=== PATIENT | female | born 1950 | race Hispanic/Latino ===

== ENCOUNTER 2016-11-15 17:21 | Inpatient (IN) ==
[2016-11-15] MEDS ORDERED: IBUPROFEN 400 MG TABLET PO PRN (17:44)
[2016-11-15] MEDS ORDERED: ACETAMINOPHEN 325 MG TABLET PO PRN (17:44)
[2016-11-15] MEDS ORDERED: VANCOMYCIN PER PHARMACY IV SCH (18:00)
--- NOTE | 2016-11-15 18:01 | Orthopedic History & Physical ---
History of Present Illness Patient information: Note initiated : 11/15/16 at 5:57 pm Service Date, if different from initiated Date: [] Patient: Renetta Moreno 66 y/o F admitted on 11/15/16 for left thigh abscess. Chief Complaint: [] Chief complaint: left thigh abscess HPI: Ms. Moreno is a 66 year old female admitted for a left thigh abscess. The patient had a debridement and incision and drainage on 10-30-16 for an infected hematoma of the left thigh. She was seen in clinic today where it was noted that she continued to have purulent drainage. She does report stiffness in the leg and difficulty with range of motion of her knee. She denies any fevers, nausea, vomiting, chest pain, abdominal pain, weakness, numbness/tingling, or any other acute symptoms. Review of Systems Constitutional: as per HPI Nose, mouth and throat: nasal congestion Cardiovascular: as per HPI, no chest pain Respiratory: as per HPI, no cough, no dyspnea Musculoskeletal: as per HPI Musculoskeletal: left: knee stiffness Integumentary: as per HPI Neurological: as per HPI Psychiatric: as per HPI Hematologic/Lymphatic: as per HPI Past History Past medical history: HTN, hypothyroidism Past surgical history: surgery on 10-30-16 for left thigh abscess Physical Examination - Knee left Appearance: other (significant swelling through the left thigh, incision that is dehiscing over the medial side of the thigh extending towards the knee with some sutures in place, packed wound over the posteromedial aspect of the knee, no surrounding erythema, area around incision indurated and hard, purulent fluid draining from all incisions, knee ROM limited secondary to stiffness and swelling, HEENT exam is atraumatic and normocephalic with some congestion but no drainage and mucuos membranes are moist, Neck exam is supple with no lymphadenopathy, chest shows no tenderness and exercsion is symmetric, Cardiovascular shows Regular Rate and rythm with no murmurs rubs or gallops, 2+ pulses in bilateral feet, abdominal exam shows obese patient with no tenderness or masses or organomegaly, dermatolgic exam shows no abnormalities except as indicated in musculoskeletal exam ) Varus alignment in stance: [id number] 6 Valgus alignment in stance: [id number] 6 Tenderness with palpation: none Pain: no pain Gait: normal Full ROM: yes ROM: hyperextension: [id number] 4 ROM: extension: [id number] 3 ROM: flexion: [id number] 26 Strength: extension: 5/5 Strength: flexion: 5/5 Patella exam: normal - Cervical Spine Neck pain: none Tenderness with palpation: none Full ROM: yes ROM: flexion: [id number] 11 ROM: extension: [id number] 11 ROM: rotation right: [id number] 11 ROM: rotation left: [id number] 11 ROM: lateral flexion right: [id number]_60 8 ROM: lateral flexion left: [id number]_[id number]_60 8 - Lumbar Spine Back pain: none Tenderness with palpation: none Appearance: normal Full ROM: yes ROM: flexion: [id number] 12 ROM: extension: PM_46_OR45_45_0 1 ROM: rotation right: [id number]_46_OR45_45_0 1 ROM: rotation left: [id number]_46_OR45_45_0 1 ROM: lateral flexion right: [id number]_46_OR45_45_0 1 ROM: lateral flexion left: [id number]_OR45_[id number]_0 1 Results - Labs Result Diagrams: 11/15/16 18:06 11/15/16 18:06 Labs: All other labs normal. Assessment and Plan (1) Traumatic hematoma of left lower leg with infection Patient will be admitted for IV antibiotics through her PICC line, She will be started on Vancomycin TID to be followed by pharmacy. We will plan to do an incision and drainage of left thigh abscess tomorrow with Dr. Santos with possibility of wound vac placement. Likely discharged to home in following 2-3 days with continued IV antibiotics for a duration of likely 4-6 weeks. Medicine to consult as needed. I explained surgery and outcomes and risks to patient and she agrees to surgery. Status: Acute
[2016-11-15 18:31] LABS: Basophils # (Auto) 0 K/mcL (0.0-0.3); Basophils % (Auto) 0.5 % (0.0-2.0); Eosinophils # (Auto) 0 K/mcL (0.0-0.7); Eosinophils % (Auto) 0.5 % (0.0-7.0); Granulocytes % (Auto) 77.6 % (38.0-78.0); Lymphocytes # (Auto) 1.3 K/mcL (1.5-4.8); Lymphocytes % (Auto) 16.1 % (15.5-49.0); Mean Cell Volume 74.6 fL (80.0-100.0); Mean Corpuscular HGB Conc 31.6 g/dL (31.0-36.0); Mean Corpuscular Hemoglobin 23.6 pg (26.0-34.0); Monocytes # (Auto) 0.4 K/mcL (0.1-0.9); Monocytes % (Auto) 5.3 % (1.0-12.0); Platelet Count 481 K/mcL (140-440); RBC 3.86 M/mcL (4.00-5.20); Red Cell Distribution Width 14.8 % (11.5-14.5)
[2016-11-15 18:52] LABS: ALT/SGPT 22 U/l (0-40); Albumin 3.6 gm/dL (3.2-5.2); Alkaline Phosphatase 101 U/L (39-117); Blood Urea Nitrogen 11 mg/dl (8-23)
[2016-11-15] MEDS ORDERED: VANCOMYCIN 500 MG VIAL ONE (19:42)
[2016-11-15] MEDS: LACTATED RINGERS 1,000 ML IV SCH (20:11)
[2016-11-15] MEDS: 0.9 % SODIUM CHLORIDE 10 ML SYRINGE IV SCH (20:11)
[2016-11-15] MEDS: VANCOMYCIN 1,500 MG in 0.9 % SODIUM CHLORIDE 500 ML IV SCH (21:44)
[2016-11-15] MEDS ORDERED: VANCOMYCIN 1,500 MG in 0.9 % SODIUM CHLORIDE 500 ML IV SCH (22:00)
[2016-11-15 23:26] LABS: Appearance,Urine CLEAR; Bilirubin,Urine NEG (NEG); Color,Urine STRAW; Glucose,Urine (UA) NEGATIVE (NEG); Leukocyte Esterase,Urine NEG /uL (NEG); Nitrate,Urine NEG (NEG); Protein,Urine NEG (NEG); Specific Gravity,Urine 1.008 (1.000-1.035); Urine Blood NEG mg/dL (<0.03); Urobilinogen,Urine NEG (NEG)
[2016-11-16] MEDS: LACTATED RINGERS 1,000 ML IV SCH ×3 (06:24→22:41)
[2016-11-16] MEDS: 0.9 % SODIUM CHLORIDE 10 ML SYRINGE IV SCH ×3 (06:25→21:33)
[2016-11-16] MEDS ORDERED: VANCOMYCIN PER PHARMACY IV SCH (11:45)
[2016-11-16] MEDS: VANCOMYCIN 1,500 MG in 0.9 % SODIUM CHLORIDE 500 ML IV SCH (11:52)
[2016-11-16] MEDS ORDERED: PROPOFOL 200 MG/20 ML VIAL IV ONE (12:10)
[2016-11-16] MEDS ORDERED: fentaNYL 250 MCG/5 ML VIAL IV ONE (12:10)
[2016-11-16] MEDS ORDERED: ONDANSETRON 4 MG/2 ML VIAL IV ONE (12:10)
[2016-11-16] MEDS ORDERED: DEXAMETHASONE 10 MG/ML VIAL IV ONE (12:10)
[2016-11-16] MEDS ORDERED: LIDOCAINE HCL/PF 100 MG/5 ML SYRINGE IV ONE (12:10)
[2016-11-16] MEDS ORDERED: MIDAZOLAM 5 MG/5 ML VIAL IV ONE (12:10)
[2016-11-16] MEDS ORDERED: fentaNYL 100 MCG/2 ML VIAL IV PRN (12:40)
[2016-11-16] MEDS ORDERED: BENZOCAINE/MENTHOL 1 LOZENGE PO PRN (12:40)
[2016-11-16] MEDS ORDERED: ONDANSETRON 4 MG/2 ML VIAL IV PRN ×2 (12:40→13:02)
[2016-11-16] MEDS ORDERED: IPRATROPIUM/ALBUTEROL 3 ML AMPUL.NEB NEB PRN (12:40)
[2016-11-16] MEDS ORDERED: MEPERIDINE 25 MG/ML SYRINGE IV PRN (12:40)
[2016-11-16] MEDS ORDERED: diphenhydrAMINE 50 MG/ML VIAL IV PRN (12:40)
[2016-11-16] MEDS ORDERED: FLUMAZENIL 0.1 MG/ML ML IV PRN (12:40)
[2016-11-16] MEDS ORDERED: LACTATED RINGERS 250 ML IV PRN (12:40)
[2016-11-16] MEDS ORDERED: NALOXONE HCL 0.4 MG/ML VIAL IV PRN (12:40)
[2016-11-16] MEDS ORDERED: LACTATED RINGERS 1,000 ML IV SCH (12:45)
[2016-11-16] MEDS ORDERED: POLYETHYLENE GLYCOL 3350 17 GM PACKET PO PRN (13:02)
[2016-11-16] MEDS ORDERED: FLEETS ADULT ENEMA PR PRN (13:02)
[2016-11-16] MEDS ORDERED: METHOCARBAMOL 750 MG TABLET PO PRN (13:02)
[2016-11-16] MEDS ORDERED: BISACODYL 10 MG SUPP.RECT PR PRN (13:02)
[2016-11-16] MEDS ORDERED: MAGNESIUM HYDROXIDE 30 ML ORAL.SUSP PO PRN (13:02)
--- NOTE | 2016-11-16 13:02 | Brief Operative Note ---
Date of procedure: 11/16/16 Pre-op diagnosis: left thigh infection Post-op diagnosis: same Procedure: left thigh I&D, bead placement, vac placement, aspiration of knee joint Grafts/Implants: Yes Anesthesia: GETA Complications: none Surgeon: Pavan Santos Ballroom Dance Instructor: Woody Allen Estimated blood loss (cc): 100 Specimens Removed/Pathology: other (cultures deep and knee aspiration left) Condition: stable Disposition: PACU
[2016-11-16] MEDS ORDERED: VANCOMYCIN 1,000 MG in 0.9 % SODIUM CHLORIDE 250 ML IV SCH (13:15)
--- NOTE | 2016-11-16 13:38 | Operative Note ---
DATE OF OPERATION: 11/16/2016 PREOPERATIVE DIAGNOSIS: Left thigh abscess. POSTOPERATIVE DIAGNOSIS: Left thigh abscess. PROCEDURES PERFORMED: 1. Irrigation and debridement of left thigh abscess including skin. subcutaneous tissue, and fascia. 2. Left knee aspiration of the joint. 3. Left thigh antibiotic bead placement and wound V.A.C. placement. SURGEON: Radha Santos MD CORPORATE TRAINING MANAGER: Woody Allen PA-C ANESTHESIA: General. FINDINGS: 1. Moderate infection, which is presumably E. coli in the subcutaneous tissue, tracking proximally and distally. 2. No evidence of infection in the knee joint. 3. No penetration into the deep fascia. INDICATIONS: The patient is a 66-year-old female. She had a previous thigh hematoma, which was aspirated. It went on to get infected. An irrigation and debridement was performed by Dr. David and she was found to have E. coli. It has progressively worsened and started draining. I was asked to see the patient in consultation yesterday and we felt that repeat irrigation and debridement and the above was the best option. She wished to proceed. The risks and benefits were discussed with the patient in detail including, but not limited to, the risks of anesthesia, problems with the heart or lungs related to anesthesia, infection, compromise or injury to the nerves and blood vessels, deep venous thrombosis, pulmonary embolism, pneumonia, continued pain after surgery, worsening pain or symptoms after surgery, swelling, loss of motion, re-tear or failure of repair site, and need for repeat surgery. OPERATION IN DETAIL: The patient was seen preoperatively where site and side were properly identified and marked, and all questions were answered. She was then transferred to the operating room and given 1 gram vancomycin and general anesthesia was administered without complication. She was prepped and draped in the usual sterile fashion from the toes up to the groin. The incision was re-excised. It was about 20 cm along the medical thigh distally. We dissected down through the skin and subcutaneous tissue and removed some of the excess skin along the periphery. Some of the subcutaneous tissue was also debrided. There was a moderate amount of purulent material. We used ring curets and curets to scrape off the fascia and removed some of the fascia as well. It did not track deep. There was some walled off regions in the subcutaneous layer, both proximally and distally and these were excised. We then thoroughly irrigated, split the 12 liters of antibiotic impregnated saline. Prior to doing this, we took cultures from the medial thigh. We then thoroughly irrigated again and we closed the incision with 2-0 Prolene. We placed a wound V.A.C. tunnel in deep and placed antibiotic beads. The wound V.A.C. finished along the distal extent of the wound and we left about 4 cm open with the wound V.A.C. for drainage. I then under sterile technique along the anterolateral side aspirated the knee joint and it had synovial fluid. This did not appear to be infected but this was sent to the lab as well for culture and cell count. She was then extubated, transferred to a stretcher, and taken to the Post-Anesthetic Care Unit in stable condition. SPECIMENS: None. COMPLICATIONS: None. DRAINS: None. DISPOSITION: To PACU in stable condition. USMAN:jenn Job ID: [id number] Doc ID: [id number] Radha Santos MD
[2016-11-16] MEDS ORDERED: TOBRAMYCIN PER PHARMACY IV ONE (13:55)
[2016-11-16] MEDS ORDERED: GENTAMICIN SULFATE 800 MG/20 ML VIAL IR ONE (14:06)
[2016-11-16] MEDS ORDERED: TOBRAMYCIN SULFATE 1.2 GM VIAL TOPICAL ONE (14:46)
[2016-11-16] MEDS: VANCOMYCIN 1 GM VIAL TOPICAL SCH (14:50)
--- NOTE | 2016-11-16 19:52 | General Surgery Consult Note ---
History of Present Illness Patient information: Note initiated : 11/16/16 at 7:49 pm Service Date, if different from initiated Date: [] Patient: Renetta Moreno 66 y/o F admitted on 11/15/16 for Left Thigh Abscess. Chief Complaint: [] Consult date: 11/16/16 Requesting physician: Pavan Santos History of present illness: Recurring LEFT thigh abscess. S/p OPEN debridement today. Consulted for wound management. I have reviewed the notes of Dr. Dawn ( Orthopedics ) and seen patient with Dianne HILLIARD, IP wound nurse. Patient is comfortable . Will take down dressings and see the wounds tomorrow morning and make further recommendations about ongoing treatment. Medications and Allergies Home Medications Medication Instructions Recorded Confirmed Type Levothyroxine [Synthroid] 25 mcg PO DAILY 11/17/16 11/17/16 History Lisinopril [Zestril] 30 mg PO DAILY 11/17/16 11/17/16 History Allergies Allergy/AdvReac Type Severity Reaction Status Date / Time No Known Drug Allergies Allergy Verified 11/15/16 19:16 Exam Temp Pulse Resp BP Pulse Ox 98.2 F 85 18 128/75 96 11/16/16 14:38 11/16/16 17:16 11/16/16 15:04 11/16/16 17:16 11/16/16 17:16 - General physical appearance well developed, well nourished, no distress, other (Comfortable and resting . Watching TV. Denies any pain or discomfort at the surgery site. Wound VAC is functioning .) - Eyes PERRL, normal ocular movement - ENT normal pinna, normal nares, normal mucosa, no hearing loss, no congestion - Head Head exam IM: Present: atraumatic, normal inspection, normocephalic - Neck no masses, trachea midline, no venous distension - Cardiovascular Cardiovascular exam IM: Present: normal rate and rhythm, bradycardia - Respiratory normal expansion, clear to auscultation - Abdomen Abdomen: Present: soft, non tender, bowel sounds - Integumentary Present: no rash, other (Wound VAC in place , Dressings CDI) - Neurologic Present: normal coordination, normal sensation, other (Non focal normal neurological examination) - Musculoskeletal Present: other (S/P Reexploration of traumatic soft tissue hematoma Left thigh. Dressings CDI. Wound VAC in place. ) - Psychiatric Present: oriented to time, oriented to person, oriented to place, speech is normal (Keen to get this over with and go home. ), memory intact Results - Labs 11/17/16 06:06 11/15/16 18:06 All other labs normal. Assessment and Plan (1) Wound disruption, post-op, skin Status: Acute Priority: Medium Comment: Patient has had a repeat surgery with debridement of post operative hmatoma and placement of beads and wound VAC on an approxiamted wound, NO clinical signs of wound VAC malfunction or other discomfort / distress. PLAN: I saw isma late in evening. Will reasses again with Zoraida RN , Wo Care Nurse in AM and further recommendations.
[2016-11-16] MEDS: DOCUSATE SODIUM 100 MG CAPSULE PO SCH (21:33)
[2016-11-16] MEDS: SENNOSIDES 1 TABLET PO SCH (21:33)
[2016-11-16 22:01] LABS: Appearance,Synovial Fluid TURBID; Color,Synovial Fluid RED
[2016-11-17] MEDS: 0.9 % SODIUM CHLORIDE 10 ML SYRINGE IV SCH ×3 (05:19→20:30)
--- NOTE | 2016-11-17 07:35 | Orthopedic Progress Note ---
Subjective Patient information: Note initiated : 11/17/16 at 7:33 am Service Date, if different from initiated Date: [] Patient: Renetta Moreno 66 y/o F admitted on 11/15/16 for Left Thigh Abscess. Chief Complaint: [] Interval history: doing much better today Objective Vital signs: Vital Signs Temp Pulse Pulse Pulse Resp BP BP 11/17/16 07:28 98.2 F 73 16 117/66 11/17/16 04:00 97.9 F 74 14 118/71 11/17/16 00:00 98.0 F 82 14 135/70 11/16/16 20:00 98.1 F 97 H 14 132/72 11/16/16 17:16 85 128/75 11/16/16 17:01 86 147/62 11/16/16 16:47 79 127/59 11/16/16 16:31 82 146/70 11/16/16 16:00 78 11/16/16 15:46 82 163/69 11/16/16 15:41 80 130/71 11/16/16 15:31 80 150/73 11/16/16 15:16 80 155/71 11/16/16 15:04 85 18 149/92 11/16/16 14:38 98.2 F 79 20 149/92 11/16/16 14:10 86 18 152/63 11/16/16 13:58 98.7 F 65 12 140/63 Pulse Ox 11/17/16 07:28 97 11/17/16 04:00 95 11/17/16 00:00 92 11/16/16 20:00 95 11/16/16 17:16 96 11/16/16 17:01 93 11/16/16 16:47 96 11/16/16 16:31 94 11/16/16 16:00 11/16/16 15:46 94 11/16/16 15:41 91 11/16/16 15:31 91 11/16/16 15:16 93 11/16/16 15:04 94 11/16/16 14:38 94 11/16/16 14:10 95 11/16/16 13:58 96 Intake and Output 11/16/16 11/17/16 11/17/16 21:59 05:59 13:59 Intake Total 780 / 780 1618 / 1618 Output Total 403 / 403 700 / 700 Balance 377 / 377 918 / 918 Intake: IV 868 / 868 Lactated Ringers 1,000 ml 868 / 868 @ 100 mls/hr IV .Q10H CARMELINA Rx#:[id number] Oral 780 / 780 750 / 750 Output: Void Amount 400 / 400 700 / 700 # of times incontinent of 3 / 3 urine Other: Meal Dinner Percent of Meal Consumed 100% Feeding Ability Independent # Voids 1 # Bowel Movements 1 Weight 190 lb Intake & Output: Intake & Output 11/16/16 11/17/16 11/17/16 21:59 05:59 13:59 Intake Total 780 / 780 1618 / 1618 Output Total 403 / 403 700 / 700 Balance 377 / 377 918 / 918 Weight 190 lb Intake: IV 868 / 868 Lactated Ringers 1,000 ml 868 / 868 @ 100 mls/hr IV .Q10H CARMELINA Rx#:[id number] Oral 780 / 780 750 / 750 Output: Void Amount 400 / 400 700 / 700 # of times incontinent of 3 / 3 urine Other: Meal Dinner Percent of Meal Consumed 100% Feeding Ability Independent # Voids 1 # Bowel Movements 1 Incision: Yes healing, Yes clean and dry Incision clean and dry: Yes Dressing: Yes clean, Yes dry, Yes intact Weight bearing status: full Neurological exam IM: Yes alert, Yes oriented X3, Yes motor sensory intact, Yes neurovascular intact Extremities exam IM: No calf tenderness, Yes Foot pink and warm, Yes neurovascular intact - Labs CBC & BMP: 11/17/16 06:06 11/15/16 18:06 Labs: 11/17/16 11/15/16 06:06 18:06 Hgb 7.4 L 9.1 L Hct 23.6 L 28.8 L Assessment and Plan (1) Traumatic hematoma of left lower leg with infection pod 1 s/p i and d leg abscess wound vac wound care consult wbat pain control iv vanco - await new cultures Status: Acute
[2016-11-17] MEDS ORDERED: IBUPROFEN 200 MG TABLET PO PRN (07:50)
[2016-11-17] MEDS: DOCUSATE SODIUM 100 MG CAPSULE PO SCH ×2 (07:53→22:02)
[2016-11-17] MEDS: HYDROcodone/APAP 10/325MG TABLET PO PRN (08:32)
[2016-11-17] MEDS ORDERED: PNEUMOCOCCAL 23-VAL P-SAC VAC 0.5 ML VIAL IM ONE (09:00)
[2016-11-17] MEDS: VANCOMYCIN 1,500 MG in 0.9 % SODIUM CHLORIDE 500 ML IV SCH (11:01)
[2016-11-17] MEDS: LACTATED RINGERS 1,000 ML IV SCH ×2 (11:09→22:02)
[2016-11-17] MEDS ORDERED: LORazepam 1 MG TABLET PO ONE (12:03)
[2016-11-17] MEDS: VANCOMYCIN 1 GM VIAL TOPICAL SCH (16:16)
[2016-11-17] MEDS: BENZOCAINE/MENTHOL 1 LOZENGE PO PRN (20:39)
--- NOTE | 2016-11-17 21:19 | General Surgery Progress Note ---
Subjective Patient reports: pain is less, tolerating a regular diet, no bowel movement, afebrile, other Narrative: Note initiated : 11/17/16 at 9:08 pm Service Date, if different from initiated Date: [] Patient: Renetta Moreno 66 y/o F admitted on 11/15/16 for Left Thigh Abscess. Chief Complaint: []I saw this patient in the morning and subsequently spoke with Dr. Santos. Concerned about area of necrosis along the flap edge with soft tissue edema. The wound is tunneling superiorly. Proper assessment could not be completed due to pain and discomfort. At this point in time, we recommend topical placement of wound VAC and hyperbaric oxygen treatment for compromise flap. I discussed this plan with Dr. Santos. He agrees with the the recommendation. Subsequently, patient underwent HBOT uneventfully. Currently resting in bed. Denies any specific complaints. LLE toes PWD. FROM of hip, knee and ankle / foot. Objective Temp Pulse Resp BP Pulse Ox 98.3 F 85 20 137/68 97 11/17/16 20:00 11/17/16 20:00 11/17/16 20:00 11/17/16 20:00 11/17/16 20:00 AVSS. MARIE no acute interval changes. HD stable. Lungs are CTA and heart sounds are normal. Dressings and wound VAC foam was removed to check the status of this wound. THIS REVEALED FOCUSED SKIN NECROSIS OF SUPERFICIAL FLAP EDGE. Though this area is small and open, in the distal part of the wound, It is situated over and proximal to knee joint, above the medial femoral condyle. This is worrisome. There is dark brown necrotic patch of skin and subcutaneous dermis, this may require close monitoring, I will recommend a HBO treatment for compromised skin flap Though new wound VAC is applied and is functioning at this time ( < 24 hours post op ). This is critical and needs to be started JOSE M. I spoke with Dr. ECHEVARRIA and reviewed photographs with him. He agrees to with plan of care. - Additional Data Intake & Output - Last 24 hours: Intake & Output 11/15/16 11/16/16 11/17/16 11/18/16 05:59 05:59 05:59 05:59 Intake Total 540 / 540 4598 / 4598 2099 / 2099 Output Total 2099 / 2099 2253 / 2253 Balance -1560 / -1560 2345 / 2345 2100 / 2100 Weight 188 lb 8 oz 190 lb - Labs 11/18/16 05:50 11/15/16 18:06 Assessment and Plan (1) Wound disruption, post-op, skin Problem details: Patient has had a repeat surgery with debridement of post operative hmatoma and placement of beads and wound VAC on an approxiamted wound. NO clinical signs of wound VAC malfunction or other discomfort / distress. PLAN: I saw angelan late in evening. Will reasses again with Zoraida HILLIARD , [facility] Care Nurse in AM and further recommendations. Status: Acute Assessment and plan: I spoke at length with floor nursing staff and Dr. Stapleton, Hospitalist Physician, Will recommend starting HBOT 2.5 ROXANN with air breaks per protocol and monitor progress. Will continue with IV antibiotics. HOLD transfer or discharge at this point. Will follow her closely, whilst she is still hospitalized Spoke with patient, benefits and patient and her at length about indication and risks, benefits . Current Visit: Yes - Time Spent With Patient Total time spent is greater than 50% in coordination of care (as documented) at patient's floor/unit and/or counseling patient: Greater than 35 minutes
[2016-11-17] MEDS: SENNOSIDES 1 TABLET PO SCH (22:02)
[2016-11-18] MEDS: LACTATED RINGERS 1,000 ML IV SCH ×2 (04:50→16:45)
[2016-11-18] MEDS: 0.9 % SODIUM CHLORIDE 10 ML SYRINGE IV SCH ×3 (05:36→20:46)
--- NOTE | 2016-11-18 06:31 | Orthopedic Progress Note ---
Subjective Patient information: Note initiated : 11/18/16 at 6:30 am Service Date, if different from initiated Date: [] Patient: Renetta Moreno 66 y/o F admitted on 11/15/16 for Left Thigh Abscess. Chief Complaint: [] Interval history: doing ok. pain under control. hbo today. wound vac Objective Vital signs: Vital Signs Temp Pulse Pulse Resp BP BP Pulse Ox 11/18/16 04:00 98.5 F 77 20 150/74 97 11/18/16 00:00 98.5 F 80 20 145/75 96 11/17/16 20:00 98.3 F 85 20 137/68 97 11/17/16 16:00 97.5 F L 18 157/73 94 11/17/16 11:14 98.7 F 18 111/66 96 11/17/16 07:28 98.2 F 73 16 117/66 97 Intake and Output 11/17/16 11/18/16 11/18/16 21:59 05:59 13:59 Intake Total 1100 / 1100 150 / 150 Balance 1100 / 1100 150 / 150 Intake: Oral 1100 / 1100 150 / 150 Other: Meal Dinner Percent of Meal Consumed 100% Feeding Ability Independent # Voids 1 1 # Bowel Movements 1 Weight 192 lb Intake & Output: Intake & Output 11/17/16 11/18/16 11/18/16 21:59 05:59 13:59 Intake Total 1100 / 1100 150 / 150 Balance 1100 / 1100 150 / 150 Weight 192 lb Intake: Oral 1100 / 1100 150 / 150 Other: Meal Dinner Percent of Meal Consumed 100% Feeding Ability Independent # Voids 1 1 # Bowel Movements 1 Incision: Yes clean and dry Incision clean and dry: Yes Dressing: Yes clean, Yes dry, Yes intact Weight bearing status: full Neurological exam IM: Yes alert, Yes normal gait, Yes oriented X3, Yes motor sensory intact Extremities exam IM: No calf tenderness, Yes Foot pink and warm, Yes neurovascular intact - Labs CBC & BMP: 11/17/16 06:06 11/15/16 18:06 Labs: 11/18/16 11/17/16 11/15/16 05:50 06:06 18:06 Hgb Pending 7.4 L 9.1 L Hct Pending 23.6 L 28.8 L Assessment and Plan (1) Traumatic hematoma of left lower leg with infection pod 2 s/p i and d leg abscess wound vac wound care consult - starting hbo wbat pain control iv vanco - await new cultures Status: Acute
[2016-11-18] MEDS ORDERED: LORazepam 1 MG TABLET PO PRN (09:38)
[2016-11-18] MEDS: BENZOCAINE/MENTHOL 1 LOZENGE PO PRN ×2 (09:38→20:45)
[2016-11-18] MEDS: DOCUSATE SODIUM 100 MG CAPSULE PO SCH ×2 (09:39→20:41)
[2016-11-18] MEDS: VANCOMYCIN 1,500 MG in 0.9 % SODIUM CHLORIDE 500 ML IV SCH (13:07)
--- NOTE | 2016-11-18 16:13 | General Surgery Progress Note ---
Subjective Narrative: Note initiated : 11/18/16 at 4:09 pm Service Date, if different from initiated Date: [] Patient: Renetta Moreno 66 y/o F admitted on 11/15/16 for Left Thigh Abscess. Chief Complaint: []I saw this patient in the morning on rounds and again during the course of her treatment in the wound clinic for HBO therapy. No overnight events. Wound VAC is functioning well. Surrounding skin and periwound area is nontender. Objective Temp Pulse Resp BP Pulse Ox 96.7 F L 77 18 150/69 96 11/18/16 15:56 11/18/16 04:00 11/18/16 15:56 11/18/16 15:56 11/18/16 15:56 - Additional Data Intake & Output - Last 24 hours: Intake & Output 11/16/16 11/17/16 11/18/16 11/19/16 05:59 05:59 05:59 05:59 Intake Total 540 / 540 4598 / 4598 2750 / 2750 600 / 600 Output Total 2100 / 2100 2253 / 2253 975 / 975 Balance -1560 / -1560 2345 / 2345 2750 / 2750 -375 / -375 Weight 188 lb 8 oz 190 lb 192 lb - Labs 11/18/16 05:50 11/15/16 18:06 Assessment and Plan (1) Wound disruption, post-op, skin Problem details: Patient has had a repeat surgery with debridement of post operative hmatoma and placement of beads and wound VAC on an approxiamted wound. NO clinical signs of wound VAC malfunction or other discomfort / distress. PLAN: I saw patietn late in evening. Will reasses again with Zoraida HILLIARD , Wo Care Nurse in AM and further recommendations. Status: Acute Assessment and plan: I spoke at length with floor nursing staff and Dr. Stapleton, Hospitalist Physician, Will recommend starting HBOT 2.5 ROXANN with air breaks per protocol and monitor progress. Will continue with IV antibiotics. HOLD transfer or discharge at this point. Will follow her closely, whilst she is still hospitalized Spoke with patient, benefits and patient and her at length about indication and risks, benefits . Current Visit: Yes - Narrative A/P Narrative: Assessment: Patient is hemodynamically and neurovascularly stable. Wound VAC left extremity is functioning well. Minimal drainage. Lab blood works are unremarkable for any acute abnormalities. so far, all cultures have been negative. Plan: Continue current treatment. Reassess the wound and change wound VAC tomorrow. Recommendation about further treatment to follow later. - Time Spent With Patient Total time spent is greater than 50% in coordination of care (as documented) at patient's floor/unit and/or counseling patient: less than 15 minutes
[2016-11-18] MEDS ORDERED: PNEUMOCOCCAL 23-VAL P-SAC VAC 0.5 ML VIAL IM ONE (17:15)
[2016-11-18] MEDS: SENNOSIDES 1 TABLET PO SCH (20:41)
[2016-11-19] MEDS: 0.9 % SODIUM CHLORIDE 10 ML SYRINGE IV SCH ×2 (04:59→14:51)
--- NOTE | 2016-11-19 07:33 | Orthopedic Progress Note ---
Orthopedics - Auxillary Note - Subjective Patient Information: Note initiated : 11/19/16 at 7:32 am Service Date, if different from initiated Date: [] Patient: Renetta Moreno 66 y/o F admitted on 11/15/16 for Left Thigh Abscess. Chief Complaint: no c/o nvi-distal bandages c/d/i Vital Signs Temp Pulse Resp BP Pulse Ox 11/19/16 03:30 99.1 F 75 24 161/82 94 11/19/16 00:10 97.9 F 80 16 169/76 92 11/18/16 20:35 98.2 F 89 16 163/72 94 11/18/16 15:56 96.7 F L 18 150/69 96 11/18/16 12:00 96.8 F L 18 165/81 97 Intake and Output 11/18/16 11/19/16 11/19/16 21:59 05:59 13:59 Intake Total 1100 / 1100 500 / 500 Output Total 1000 / 1000 0 / 0 Balance 100 / 100 500 / 500 Intake: Oral 1100 / 1100 500 / 500 Output: Drainage 0 / 0 Left Thigh Woundvac 0 / 0 Void Amount 1000 / 1000 Other: Meal Dinner Percent of Meal Consumed 75% # Voids 1 1 2 # Bowel Movements 1 2 Weight 186 lb Laboratory Results - last 24 hr 11/19/16 05:05 Hgb 7.7 L Hct 24.9 L s/p L leg I&D-stable continue with IV abx continue with wound care
[2016-11-19] MEDS: DOCUSATE SODIUM 100 MG CAPSULE PO SCH (08:08)
[2016-11-19] MEDS: HYDROcodone/APAP 10/325MG TABLET PO PRN (08:16)
--- NOTE | 2016-11-19 10:31 | General Surgery Progress Note ---
Subjective Patient reports: no new complaints Narrative: Note initiated : 11/19/16 at 10:29 am Service Date, if different from initiated Date: [] Patient: Renetta Moreno 66 y/o F admitted on 11/15/16 for Left Thigh Abscess. Chief Complaint: [] Objective Temp Pulse Resp BP Pulse Ox 98.1 F 74 16 173/77 96 11/19/16 08:00 11/19/16 08:00 11/19/16 08:00 11/19/16 08:00 11/19/16 08:00 AVSS. No changes MARIE. Dressing changed and wound VAC reapplied. Continues to have serous drainage. NO odor. C/S negative thus far. Wound dimensions as per nurses note. - Additional Data Intake & Output - Last 24 hours: Intake & Output 11/17/16 11/18/16 11/19/16 11/20/16 05:59 05:59 05:59 05:59 Intake Total 4598 / 4598 2750 / 2750 1840 / 1840 Output Total 2253 / 2253 1375 / 1375 Balance 2345 / 2345 2750 / 2750 465 / 465 Weight 190 lb 192 lb 186 lb - Labs 11/19/16 05:05 11/15/16 18:06 Assessment and Plan (1) Wound disruption, post-op, skin Problem details: 11/19/2016 Satisfactory progrss and response to treatment. Flap necrosis and edema is responding to VAC treatment and HBO . OK to discharge home on PO antibiotcs and wound VAC (Portable out patient VAC) and f/u at the wound clinic. Status: Acute Assessment and plan: I spoke at length with floor nursing staff and Dr. Stapleton, Hospitalist Physician, Will recommend starting HBOT 2.5 ROXANN with air breaks per protocol and monitor progress. Will continue with IV antibiotics. HOLD transfer or discharge at this point. Will follow her closely, whilst she is still hospitalized Spoke with patient, benefits and patient and her at length about indication and risks, benefits . Current Visit: Yes - Time Spent With Patient Total time spent is greater than 50% in coordination of care (as documented) at patient's floor/unit and/or counseling patient:
[2016-11-19] MEDS: VANCOMYCIN 1,500 MG in 0.9 % SODIUM CHLORIDE 500 ML IV SCH (13:40)
--- NOTE | 2016-11-19 16:02 | General Surgery Progress Note ---
Subjective Patient reports: no new complaints (Tolerated HBOT uneventfully. Being discharged today. Out patietn wound VAC and PO Antibiotic) Narrative: Note initiated : 11/19/16 at 4:00 pm Service Date, if different from initiated Date: [] Patient: Renetta Moreno 66 y/o F admitted on 11/15/16 for Left Thigh Abscess. Chief Complaint: [] Objective Temp Pulse Resp BP Pulse Ox 97.8 F 92 H 16 157/73 92 11/19/16 14:34 11/19/16 14:34 11/19/16 14:34 11/19/16 14:34 11/19/16 14:34 AVSS. No changes MARIE. Portable wound VAC applied from clinic. [facility] wound VAC to be available, when delivered to patient. - Additional Data Intake & Output - Last 24 hours: Intake & Output 11/17/16 11/18/16 11/19/16 11/20/16 05:59 05:59 05:59 05:59 Intake Total 4598 / 4598 2750 / 2750 2340 / 2340 500 / 500 Output Total 2253 / 2253 1375 / 1375 Balance 2345 / 2345 2750 / 2750 965 / 965 500 / 500 Weight 190 lb 192 lb 186 lb - Labs 11/19/16 05:05 11/15/16 18:06 Assessment and Plan (1) Wound disruption, post-op, skin Problem details: 11/19/2016 Satisfactory progrss and response to treatment. Flap necrosis and edema is responding to VAC treatment and HBO . OK to discharge home on PO antibiotcs and wound VAC (Portable out patient VAC) and f/u at the wound clinic. Status: Acute Assessment and plan: I spoke at length with floor nursing staff and Dr. Stapleton, Hospitalist Physician, Will recommend starting HBOT 2.5 ROXANN with air breaks per protocol and monitor progress. Will continue with IV antibiotics. HOLD transfer or discharge at this point. Will follow her closely, whilst she is still hospitalized Spoke with patient, benefits and patient and her at length about indication and risks, benefits . Current Visit: Yes - Narrative A/P Narrative: Seen on floor. Portable wound VAC applied. Patient still continues to heave serous drainage, decreasing in amount. All cultures are negative. Vancomycin discontinued. Discharging patient on PO Doxycycline 100 mg BID for 19 days. - Time Spent With Patient Total time spent is greater than 50% in coordination of care (as documented) at patient's floor/unit and/or counseling patient: 15 - 24 minutes
[2016-11-19] MEDS ORDERED: DOXYCYCLINE HYCLATE 100 MG TABLET.ORL PO SCH (21:00)
== END 2016-11-19 17:22 | disposition home or self-care (01) | DRG 857 ==
LOC: MEDSUR 17:26
PROVIDERS: ADMIT Orthopaedic Surgery Sports Medicine; ATTEND Orthopaedic Surgery Sports Medicine